=== PATIENT | male | born 1930 | race Asian ===

== ENCOUNTER 2021-06-05 10:36 | Outpatient (RCR) | payer OTHER ==
[2021-06-05] MEDS ORDERED: LIDOCAINE VISC 2% SOLN 15 ML UDC ONE (15:06)
[2021-06-05 15:59] LABS: BASOPHILS # (AUTO) 0.1 (0.0-0.1); BASOPHILS % 0.9 % (0.0-1.0); EOSINOPHILS # (AUTO) 0.2 (0.0-0.4); EOSINOPHILS % 3.7 % (0.0-6.0); HEMATOCRIT 35.2 % (38.2-49.6); HEMOGLOBIN 11.6 g/dL (14.0-18.0); LYMPHOCYTES # (AUTO) 1.3 (1.0-3.2); LYMPHOCYTES % 23.5 % (18.0-39.1); MEAN CORPUSCULAR HEMOGLOBIN 31.3 pg (28-32); MEAN CORPUSCULAR VOLUME 94.9 fL (81-99); MONOCYTES # (AUTO) 0.5 (0.2-0.8); MONOCYTES % 8.8 % (4.4-11.3); NEUTROPHILS # (AUTO) 3.6 (2.1-6.9); NEUTROPHILS % 62.2 % (38.7-80.0); PLATELET COUNT 228 x10e3/uL (140-360); RED BLOOD COUNT 3.71 x10e6/uL (4.3-5.7); RED CELL DISTRIBUTION WIDTH 12.5 % (11.7-14.4)
[2021-06-05 16:17] LABS: ALBUMIN 3.7 g/dL (3.5-5.0); ALBUMIN/GLOBULIN RATIO 1.1 (0.8-2.0); ANION GAP 13.1 mmol/L (8-16); CALCIUM 8.5 mg/dL (8.4-10.2); CREATININE, SERUM 1.13 mg/dL (0.72-1.25); POTASSIUM 4.1 mmol/L (3.5-5.1)
== END 2021-06-19 ==
LOC: WCC 10:36
PROVIDERS: ATTEND Internal Medicine Infectious Disease
DX: L89.211 Pressure ulcer of right hip, stage 1 (principal); L89.311 Pressure ulcer of right buttock, stage 1; L89.321 Pressure ulcer of left buttock, stage 1; E11.9 Type 2 diabetes mellitus without complications; I10 Essential (primary) hypertension; Z74.01 Bed confinement status
CPT/HCPCS: 36415; 80053; 83036; 84134; 85025

== ENCOUNTER → 2021-08-17 | Outpatient (RCR) | payer OTHER ==
[~2021-08-17] MED LIST: TRYPSIN/BALSAM PERU/CASTOR OIL ONE
== END ==
LOC: WCC 07-27 10:46
PROVIDERS: ATTEND Internal Medicine Infectious Disease
DX: L89.211 Pressure ulcer of right hip, stage 1 (principal); L89.311 Pressure ulcer of right buttock, stage 1; L89.321 Pressure ulcer of left buttock, stage 1; E11.9 Type 2 diabetes mellitus without complications; I10 Essential (primary) hypertension; Z74.01 Bed confinement status

== ENCOUNTER 2021-09-11 09:59 | Outpatient (RCR) | payer MEDICARE | END 2021-09-17 | LOC: WCC 09:59 | PROVIDERS: ATTEND Internal Medicine Infectious Disease | DX: L89.211 Pressure ulcer of right hip, stage 1 (principal); L89.311 Pressure ulcer of right buttock, stage 1; L89.321 Pressure ulcer of left buttock, stage 1; E11.9 Type 2 diabetes mellitus without complications; I10 Essential (primary) hypertension; Z74.01 Bed confinement status ==

== ENCOUNTER 2021-10-02 09:58 | Outpatient (RCR) | payer MEDICARE ==
[2021-10-02] MEDS ORDERED: TRYPSIN/BALSAM PERU/CASTOR OIL ONE (13:42)
[2021-10-02] MEDS ORDERED: TRIAMCINOLONE ACET 0.1% CREAM 15 GM TUBE ONE (13:42)
== END 2021-10-17 ==
LOC: WCC 09:58
PROVIDERS: ATTEND Internal Medicine Infectious Disease
DX: L89.211 Pressure ulcer of right hip, stage 1 (principal); L89.311 Pressure ulcer of right buttock, stage 1; L89.321 Pressure ulcer of left buttock, stage 1; E11.9 Type 2 diabetes mellitus without complications; I10 Essential (primary) hypertension; Z74.01 Bed confinement status

== ENCOUNTER 2021-10-23 11:17 | Outpatient (RCR) | payer MEDICARE | END 2021-11-17 | LOC: WCC 11:17 | PROVIDERS: ATTEND Internal Medicine Infectious Disease | DX: E11.9 Type 2 diabetes mellitus without complications (principal); L89.211 Pressure ulcer of right hip, stage 1; L89.321 Pressure ulcer of left buttock, stage 1; L89.311 Pressure ulcer of right buttock, stage 1; I10 Essential (primary) hypertension; Z74.01 Bed confinement status ==